=== PATIENT | female | born 1980 | race African-American/Black ===

== ENCOUNTER 2016-12-28 22:27 | Inpatient (IN) ==
[2016-12-28] MEDS ORDERED: methylPREDNISolone SOD SUC 125 MG/2 ML VIAL IV STA (23:39)
[2016-12-28] MEDS ORDERED: ONDANSETRON 4 MG/2 ML VIAL IV STA (23:39)
[2016-12-28] MEDS ORDERED: cefTRIAXone 1,000 MG in SODIUM CHLORIDE 0.9% 100 ML IV STA (23:39)
[2016-12-28] MEDS ORDERED: FUROSEMIDE 100 MG/10 ML VIAL IV STA (23:39)
[2016-12-28] MEDS ORDERED: ALBUTEROL 2.5 MG/3 ML NEB RESP TX SCH (23:45)
--- NOTE | 2016-12-29 00:05 | Emergency Department Note ---
IRadha Emily, am scribing for, and in the presence of, Nick Mejia MD 23: 45. Roberto Shah Charles R, MD, personally performed the services described in this documentation, ascribed by Nurys Garcia in my presence, and it is both accurate and complete . Arrival - Arrival Chief Complaint: Upper Respiratory Stated Complaint: coughing up blood, chest pain, lower abdomen pain ED Nursing Triage Note: Patient complains of coughing up mucus and blood tinged sputum that has been going for the past week. Also complains of sore throat with cough and congestion. Mode of Arrival: Ambulatory Limitations: No Limitations Source: Patient Time Seen by Provider: 12/28/16 23:06 - History of Present Illness HPI Narrative: Pt is a 36 y/o female who came to ED with c/o severe cough, chest congestion, and mild SOB that has been ongoing for a week. Pt describes chest pain as tightness; along with other experienced sxs of wheezing, sore throat, lower abdomen pain, and blood intermittently in phlegm. Pt reports having uncontrolled glucose level, in which was in 6-700's but now in 400's. Pt's PCP is Alfredo Delgado. Pt denies sinus or allergies issues. Onset (ago): week(s) Consistency: constant Severity: mild Severity scale (1-10): 3 Quality: aching, fullness Date of Last Menstrual Period: 09/14/2017 Allergies/Adverse Reactions: Allergies Allergy/AdvReac Type Severity Reaction Status Date / Time gabapentin [From Neurontin] Allergy Severe Swelling Verified 09/15/15 15:34 of Lip/Tongue/Throat iodine Allergy Severe ANAPHYLAXIS Verified 09/15/15 15:34 Home Medications: Home Medications Medication Instructions Recorded Confirmed Type Amitriptyline HCl 100 mg PO BEDTIME 09/15/15 12/28/16 History Cyclobenzaprine [Flexeril] 10 mg PO TID 09/15/15 12/28/16 History Glipizide [Glipizide Xl] 10 mg PO DAILY 09/15/15 12/28/16 History HYDROcodone/ACETAMIN 10-325 [[place] 1 tablet PO Q6H #20 tablet 09/15/15 12/28/16 Rx 10-325] Hum Insulin NPH/Reg Insulin Hm 30 unit SUBCUT DAILY W/SUPPER 09/15/15 12/28/16 History [NovoLIN 70/30] Hum Insulin NPH/Reg Insulin Hm 60 unit SUBCUT DAILY W/BREAKFAST 09/15/15 History [NovoLIN 70/30] Lisinopril [Zestril] 40 mg PO DAILY 09/15/15 12/28/16 History Lovastatin 20 mg PO BEDTIME 09/15/15 12/28/16 History Pregabalin [Lyrica] 100 mg PO BID 09/15/15 12/28/16 History Sulfameth/Trimeth 800-160 Tab 1 tablet PO BID #20 tablet 09/15/15 12/28/16 Rx [Bactrim Ds Tab] metFORMIN [Glucophage] 850 mg PO TID W/MEALS 09/15/15 12/28/16 History Tizanidine HCl 4 mg PO BEDTIME #15 capsule 01/22/16 12/28/16 Rx Naproxen Sodium [Naproxen Sodium 220 mg PO Q8H #30 capsule 02/01/16 12/28/16 Rx Cap] Review of System - Review of System 12 point system: reviewed and no additional remarkable complaints except as stated - Review of System Constitutional: Absent: chills, fever Head/Ears/Nose/Throat: Present: nasal drainage, sore throat Respiratory: Present: cough (severe; hard; productive with some blood in phlegm) , respiratory distress (mild sob), wheezing Cardiovascular: Present: chest pain (chest wall pain) Gastrointestinal: Present: abdominal pain (mild; lower). Absent: nausea, vomiting, diarrhea Musculoskeletal: Absent: arm pain, back pain, leg pain, neck pain Skin: Absent: rash Neurological: Absent: headache Psychiatric: Absent: anxiety Medical,Surgical,& Family Hx - Medical History Cardio: History of: Hypertension Psychological: History of: Depression Neurology: History of: Peripheral Neuropathy Endocrine: History of: Diabetes Mellitus (IDDM), Dyslipidemia - Social History Smoking Status: Never smoker Frequency of Alcohol Use: Occasionally Type of Drug Use: None Exam Vital Signs: Vital Signs Temperature 98.0 F 12/28/16 22:40 Pulse Rate 102 H 12/28/16 22:40 Respiratory Rate 18 12/28/16 23:23 Blood Pressure 151/98 12/28/16 22:40 O2 Sat by Pulse Oximetry 93 L 12/28/16 22:40 - General General appearance: alert, in no apparent distress, obese - Head Head exam: Present: atraumatic, normocephalic - Eye Eye exam: Present: PERRL, EOMI - ENT ENT exam: Present: mucous membranes moist, TM's normal bilaterally. Absent: normal oropharynx (erythematous), mucous membranes dry - Neck Neck exam: Present: full ROM, lymphadenopathy (shotty). Absent: tenderness - Chest Chest inspection: Present: symmetric chest wall rise. Absent: tenderness - Respiratory Respiratory exam: Present: wheezes (bilateral). Absent: respiratory distress - Cardiovascular Cardiovascular exam: Present: regular rate, normal rhythm, normal heart sounds - Abdominal Exam Abdominal exam: Present: soft. Absent: distention, tenderness - Extremities Exam Extremities exam: Present: full ROM, pedal edema (+2). Absent: tenderness - Back Exam Back exam: Present: full ROM. Absent: tenderness - Neurological Exam Neurological exam: Present: alert, oriented X3, CN II-XII intact. Absent: motor sensory deficit - Psychiatric Psychiatric exam: Present: normal affect, normal mood - Skin Skin exam: Present: warm, dry Course Course Narrative: Patient was mistakenly given 70 units of Humulin R IV instead of 7 units IV by the nurse accidentally, the nurse informed me of this and we quickly started doing Accu-Cheks assess the patient on a 10 minute interval. Patient was placed on IV D10 infusion. Patient was informed of what happened she stable understands the dangers of this insulin iatrogenic overdose and agrees to come into the hospital for acute care until her sugars stabilize. At this point her last Accu-Chek was 355. - Reevaluation(s) Reevaluation #1: Patient's blood sugar actually increased to 415 after the D10 will hold back and changed to KVO now she is has not had a precipitous insulin drop yet Time: 02:05 Reevaluation #2: Patient still doing well. Patient's blood sugar actually increased to greater than 500. So D10 will be stopped at this time. Patient still will be admitted for observation and treatment of her other symptoms. Time: 02:52 - Consultations Consultation #1: Hospitalist will admit patient Time: 01:20 Results - Labs CBC & BMP: 12/29/16 00:09 12/28/16 00:09 Lab Results: I have reviewed the patients labs Labs: Laboratory Tests 12/29/16 00:09 Lymph # (Auto) 5.3 H [place] # (Auto) 0.9 H Microbiology 12/29/16 00:09 Throat Group A Streptococcus Rapid Screen - Final Negative for Grp A Strep Ag 12/29/16 00:09 Nasal Aspirate Influenza Types A,B Antigen (ALFONSO) - Final Negative for Influenza A Ag Negative for Influenza B Ag Laboratory Tests 12/28/16 00:09 Anion Gap 17.3 H Glucose 414 H Magnesium 1.6 L Globulin 3.9 H Albumin/Globulin Ratio 1.0 L Laboratory Tests 12/29/16 00:09 B-Natriuretic Peptide < 2 L Laboratory Tests 12/29/16 01:17 POC Glucose 355 H Laboratory Tests 12/29/16 01:47 POC Glucose 415 H Critical Care Time Critical Care Time: Yes Total Critical Care Time: 60 Disposition Clinical Impression: Upper respiratory infection, Bronchitis, Acute dyspnea, Atypical chest pain, Hyperglycemia, Accidental iatrogenic insulin overdose Case discussed with: patient, patient's family Disposition: Still a Patient Condition: Guarded Time of Disposition: 01:35
[2016-12-29] MEDS ORDERED: cefTRIAXone 1,000 MG VIAL ONE (00:13)
[2016-12-29 00:15] LABS: Basophils # 0.1 10*3/uL (0.0-0.2); Basophils % 0.4 % (0.0-0.8); Eosinophils # 0.3 10*3/uL (0.0-0.87); Eosinophils % 2.2 % (0.00-10.9); Hematocrit 41.1 VOL% (35.7-47.0); Hemoglobin 13.4 GM/DL (12.0-16.0); Immature Granulocytes % 0.4 %; Immature Granulocytes Absolute 0.05 #; Lymphocytes # 5.3 10*3/uL (1.4-4.0); Lymphocytes % 43.9 % (21.3-54.2); Mean Corpuscular HGB Conc 32.6 GM/DL (32-36); Mean Corpuscular Hemoglobin 30 PG (27-34); Mean Corpuscular Volume 90.3 FL (87-102); Mean Platelet Volume 11.1 FL (9.6-12.0); Monocytes # 0.9 10*3/uL (0.11-0.8); Monocytes % 7.2 % (1.7-12.7); Neutrophils # 5.5 10*3/uL (1.4-7.4); Neutrophils % 45.9 % (38.7-73.9); Platelet Count 335 T/CUMM (130-400); Red Blood Count 4.55 MC/CUMM (3.8-5.5); Red Cell Distribution Width 12.3 % (9.3-17.3)
[2016-12-29] MEDS ORDERED: FUROSEMIDE 40 MG/4 ML VIAL ONE (00:26)
[2016-12-29] MEDS ORDERED: methylPREDNISolone SOD SUC 125 MG/2 ML VIAL ONE (00:27)
[2016-12-29] MEDS ORDERED: ONDANSETRON 4 MG/2 ML VIAL ONE ×2 (00:27→06:18)
[2016-12-29 00:28] LABS: D-Dimer <= 0.5 MG/L FEU; PT Patient Result 11.1 SECS
[2016-12-29 00:38] LABS: Alanine Aminotransferase 33 U/L (13-56); Albumin 3.9 G/DL (3.4-5.0); Alkaline Phosphatase 63 U/L (45-117); Aspartate Amino Transferase 10 U/L (0-37); Bilirubin,Total < 0.39 MG/DL (0.2-1.0); Blood Urea Nitrogen 16 MG/DL (7-18); Glucose 414 MG/DL (74-106); Magnesium 1.6 MG/DL (1.8-2.4); Potassium 4.3 MMOL/L (3.5-5.1); Sodium 136 MMOL/L (136-145); Total Protein 7.8 G/DL (6.4-8.3); Troponin I Only < 0.015 NG/ML (0.00-0.045)
[2016-12-29] MEDS ORDERED: MAGNESIUM SULF RIDER 2 GM in PREMIX 1 EACH IV STA (00:45)
[2016-12-29] MEDS ORDERED: INSULIN REGULAR 100 UNIT/ML IV STA (00:45)
[2016-12-29] MEDS ORDERED: MAGNESIUM SULF RIDER 50 ML IV ONE (00:52)
[2016-12-29] MEDS ORDERED: INSULIN REGULAR 100 UNIT/ML ONE (00:54)
[2016-12-29] MEDS ORDERED: DEXTROSE 10% 250 ML IV ONE (01:19)
[2016-12-29] MEDS ORDERED: DEXTROSE 10% 1,000 ML IV SCH (01:30)
[2016-12-29 03:20] LABS: Troponin I Only < 0.015 NG/ML (0.00-0.045)
--- NOTE | 2016-12-29 04:22 | Hospitalist History & Physical ---
Assessment and Plan (1) Upper respiratory infection Status: Acute Current Visit: Yes (2) Bronchitis Status: Acute Current Visit: Yes (3) Acute dyspnea Status: Acute Current Visit: Yes (4) Atypical chest pain Status: Acute Current Visit: Yes (5) Hyperglycemia Status: Acute Assessment and plan: Our plan for this patient. Per the ER chart patient was accidentally given 70 units of Humulin R subcu instead of 7 units IV by the nurse. We are going to watch the patient closely with Accu-Cheks q. one hours while in the emergency room. After 8:00 patient should be in the clear as far as concerns for hypoglycemia and will be able to transfer her upstairs. I am going to treat her for a bronchitis with hemoptysis. I am going to consult pulmonary for their evaluation. Her mother has very severe asthma patient has a slight wheeze on reluctant to give any steroids at this point given her sugar have been so uncontrolled. Patient is also going to need some diabetic education. Current Visit: Yes History of Present Illness Chief complaint: Hemoptysis History of present illness: Ms. Salgado is a 36 year old female with past medical history significant for diabetes hypertension increased cholesterol neuropathy insomnia and depression who was in her normal state of health until this past week. Patient said that she is continually coughing up blood. She said her cough is severe. She has had some chest congestion and some shortness of breath for 1 week. She describes this is creating a tightness sensation in her chest. She is morbidly obese. She denies any fever. And she just feels like she cannot take a good breath. She has very hard to control glucose that she says usually ranges in the 400s. She sees Dr. Alfredo Delgado. She could not get in to see him in clinic therefore she came up to the emergency room for further evaluation I was consulted to admit her Home Medications Medication Instructions Recorded Confirmed Type Amitriptyline HCl 100 mg PO BEDTIME 09/15/15 12/28/16 History Cyclobenzaprine [Flexeril] 10 mg PO TID 09/15/15 12/28/16 History Glipizide [Glipizide Xl] 10 mg PO DAILY 09/15/15 12/28/16 History HYDROcodone/ACETAMIN 10-325 [[place] 1 tablet PO Q6H #20 tablet 09/15/15 12/28/16 Rx 10-325] Hum Insulin NPH/Reg Insulin Hm 30 unit SUBCUT DAILY W/SUPPER 09/15/15 12/28/16 History [NovoLIN 70/30] Hum Insulin NPH/Reg Insulin Hm 60 unit SUBCUT DAILY W/BREAKFAST 09/15/15 History [NovoLIN 70/30] Lisinopril [Zestril] 40 mg PO DAILY 09/15/15 12/28/16 History Lovastatin 20 mg PO BEDTIME 09/15/15 12/28/16 History Pregabalin [Lyrica] 100 mg PO BID 09/15/15 12/28/16 History Sulfameth/Trimeth 800-160 Tab 1 tablet PO BID #20 tablet 09/15/15 12/28/16 Rx [Bactrim Ds Tab] metFORMIN [Glucophage] 850 mg PO TID W/MEALS 09/15/15 12/28/16 History Tizanidine HCl 4 mg PO BEDTIME #15 capsule 01/22/16 12/28/16 Rx Naproxen Sodium [Naproxen Sodium 220 mg PO Q8H #30 capsule 02/01/16 12/28/16 Rx Cap] Allergies Allergy/AdvReac Type Severity Reaction Status Date / Time gabapentin [From Neurontin] Allergy Severe Swelling Verified 09/15/15 15:34 of Lip/Tongue/Throat iodine Allergy Severe ANAPHYLAXIS Verified 09/15/15 15:34 Medical,Surgical,& Family Hx - Medical History Cardio: History of: Hypertension Psychological: History of: Depression Neurology: History of: Peripheral Neuropathy Endocrine: History of: Diabetes Mellitus (IDDM), Dyslipidemia - Surgical History Additional Surgical History: none - Family History Family History: Reports;: Family Cancer Additional Family History: Her mother has severe asthma and well-known to our service - Social History Smoking Status: Never smoker Frequency of Alcohol Use: Occasionally Type of Drug Use: None 12 point system: reviewed and no additional remarkable complaints except as stated Exam - Constitutional Vitals: Period Temp Pulse Resp BP Sys/Camp Pulse Ox Last 24 Hr 98.0 F 102 18-20 151/98 93 - General General appearance: alert, in no apparent distress, obese - Head Head exam: Present: atraumatic, normocephalic - Eye Eye exam: Present: PERRL, EOMI - ENT ENT exam: Present: mucous membranes moist, TM's normal bilaterally. - Neck Neck exam: Present: full ROM, l. - Chest Chest inspection: Present: symmetric chest wall rise. Absent: tenderness - Respiratory Respiratory exam: Present: wheezes (bilateral). - Cardiovascular Cardiovascular exam: Present: regular rate, normal rhythm, normal heart sounds - Abdominal Exam Abdominal exam: Present: soft. Absent: distention, tenderness - Extremities Exam Extremities exam: Present: full ROM, pedal edema (+2). Absent: tenderness - Back Exam Back exam: Present: full ROM. Absent: tenderness - Neurological Exam Neurological exam: Present: alert, oriented X3, CN II-XII intact. Absent: motor sensory deficit - Psychiatric Psychiatric exam: Present: normal affect, normal mood - Skin Skin exam: Present: warm, dry Results - Labs CBC & BMP: 12/29/16 00:09 12/28/16 00:09
[2016-12-29] MEDS ORDERED: GLUCAGON 1 MG VIAL IM PRN ×2 (04:35→04:46)
[2016-12-29] MEDS ORDERED: DEXTROSE 50% 25 GM/50 ML VIAL IV PRN ×2 (04:35→04:46)
[2016-12-29] MEDS ORDERED: ONDANSETRON 4 MG/2 ML VIAL IV PRN (04:35)
[2016-12-29] MEDS ORDERED: ACETAMINOPHEN 325 MG TABLET PO PRN (04:35)
[2016-12-29] MEDS ORDERED: ZALEPLON 5 MG CAPSULE PO PRN (04:35)
[2016-12-29] MEDS ORDERED: NAPROXEN 250 MG TABLET PO SCH (04:45)
[2016-12-29] MEDS ORDERED: INSULIN NPH/REGULAR 70/30 100 UNIT/ML SUBCUT SCH ×2 (08:00→17:00)
--- NOTE | 2016-12-29 08:09 | XRay Report ---
Exam: XR chest 1V portable Indication: Shortness of breath Comparison study: None Findings: The heart, mediastinum, and bony structures are within normal limits. Patchy opacities within the bases may represent atelectasis. Upper lungs appear predominantly clear. Upper lobe pulmonary vasculature does not appear engorged. There is no pneumothorax or pleural effusion identified. Impression: Minimal patchy opacities within the lung bases may represent atelectasis. PROCEDURE INTERPRETED AT [facility] DEPARTMENT OF RADIOLOGY Final Report Signed by: Richard Berumen
--- NOTE | 2016-12-29 08:47 | EKG Report ---
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
[2016-12-29] MEDS: ALBUTEROL 2.5 MG/3 ML NEB RESP TX SCH ×3 (09:08→19:27)
[2016-12-29] MEDS: INSULIN REGULAR 100 UNIT/ML SUBCUT SCH ×4 (13:27→21:25)
[2016-12-29] MEDS: PREGABALIN 100 MG CAPSULE PO SCH (13:28)
[2016-12-29] MEDS: CYCLOBENZAPRINE 10 MG TABLET PO SCH ×4 (13:29→21:24)
[2016-12-29] MEDS: metFORMIN 850 MG TABLET PO SCH ×2 (13:29→13:36)
[2016-12-29] MEDS: LISINOPRIL 20 MG TABLET PO SCH (13:29)
[2016-12-29] MEDS: PANTOPRAZOLE 40 MG TABLET PO SCH (13:32)
[2016-12-29] MEDS: NAPROXEN 250 MG TABLET PO SCH ×2 (13:39→21:23)
--- NOTE | 2016-12-29 15:27 | Hospitalist Progress Note ---
Assessment and Plan - Time spent with patient Time spent with patient: Greater than 30 minutes (1) Hemoptysis Status: Acute Assessment and plan: Will obtain a Ct of the chest. Current Visit: Yes (2) Atypical chest pain Status: Acute Assessment and plan: Normal enzyme levels. Current Visit: Yes (3) Diabetes mellitus Status: Acute Assessment and plan: Uncontrolled. Holding metformin. Current Visit: Yes Qualifiers: Diabetes mellitus type: type 2 (4) Upper respiratory infection Status: Acute Assessment and plan: Continue management. Current Visit: Yes Hospitalist: Subjective Interval history: Admitted with hemoptysis, c/o pleuritic chest pain. Exam - Constitutional Vitals: Period Temp Pulse Resp BP Sys/Camp Pulse Ox Last 24 Hr 97.2 F 95-103 16-22 131-133/81-96 93 General appearance: no acute distress - Head Head exam: Present: normocephalic, atraumatic - Eye Eye exam: Present: EOMI Pupils: Present: MURIEL - ENT ENT exam: Present: normal exam - Neck Neck exam: Present: normal inspection - Respiratory Respiratory exam: Present: clear to auscultation bilaterally. Absent: rhonchi, wheezes - Cardiovascular Cardiovascular exam: Present: regular rate and rhythm. Absent: gallop, rubs, systolic murmur - GI/Abdominal GI/Abdominal exam: Present: normal bowel sounds, soft. Absent: distended, firm , guarding, tenderness, rebound - Extremities Exam Extremities exam: Present: normal inspection. Absent: calf tenderness, edema Results - Labs CBC & BMP: 12/29/16 00:09 12/28/16 00:09 Lab Results: I have reviewed the past 24 hour labs
--- NOTE | 2016-12-29 16:45 | Ultrasound Report ---
Exam: Bilateral lower extremity venous Doppler ultrasound Comparison: None Clinical history: Hemoptysis, shortness of breath Technique: Duplex scan of the lower extremity veins using B-mode/grayscale scaled imaging and Doppler spectral analysis and color flow. Findings: Major venous structures of the lower extremities demonstrate a normal course and caliber. Normal color-flow study and spectral analysis. There is normal compression and augmentation of bilateral common femoral, superficial femoral and popliteal veins. The proximal bilateral greater saphenous veins appear to be patent. Impression: No evidence to suggest deep venous thrombosis within either lower extremity. Ultrasound images were captured and stored. PROCEDURE INTERPRETED AT [facility] DEPARTMENT OF RADIOLOGY Final Report Signed by: Dr. Ivon Joshua
[2016-12-29] MEDS ORDERED: tiZANidine 4 MG TABLET PO SCH (21:00)
[2016-12-29] MEDS: cefTRIAXone 1,000 MG in SODIUM CHLORIDE 0.9% 100 ML IV SCH (21:23)
[2016-12-29] MEDS: LOVASTATIN 20 MG TABLET PO SCH (21:24)
[2016-12-29] MEDS: AMITRIPTYLINE 50 MG TABLET PO SCH (21:29)
[2016-12-30] MEDS: ALBUTEROL 2.5 MG/3 ML NEB RESP TX SCH ×5 (00:19→23:55)
[2016-12-30 03:46] LABS: Basophils # 0.1 10*3/uL (0.0-0.2); Basophils % 0.5 % (0.0-0.8); Eosinophils # 0.2 10*3/uL (0.0-0.87); Eosinophils % 1.9 % (0.00-10.9); Hematocrit 36.6 VOL% (35.7-47.0); Hemoglobin 12.1 GM/DL (12.0-16.0); Immature Granulocytes % 0.5 %; Immature Granulocytes Absolute 0.05 #; Lymphocytes % 37.8 % (21.3-54.2); Mean Corpuscular HGB Conc 33.1 GM/DL (32-36); Mean Corpuscular Hemoglobin 29 PG (27-34); Mean Corpuscular Volume 89.1 FL (87-102); Mean Platelet Volume 11.7 FL (9.6-12.0); Monocytes % 9.8 % (1.7-12.7); Neutrophils # 5.2 10*3/uL (1.4-7.4); Neutrophils % 49.5 % (38.7-73.9); Platelet Count 317 T/CUMM (130-400); Red Blood Count 4.11 MC/CUMM (3.8-5.5); Red Cell Distribution Width 12.8 % (9.3-17.3); White Blood Count 10.5 T/CUMM (4-12)
[2016-12-30 04:01] LABS: Calcium 9.4 MG/DL (8.5-10.1); Osmolality,Calculated 289.8 MOS/KG (273-304)
[2016-12-30] MEDS: PREGABALIN 100 MG CAPSULE PO SCH ×3 (04:05→21:00)
[2016-12-30] MEDS: NAPROXEN 250 MG TABLET PO SCH ×3 (04:06→21:00)
--- NOTE | 2016-12-30 09:30 | Hospitalist Progress Note ---
Assessment and Plan - Time spent with patient Time spent with patient: Greater than 30 minutes (1) Hemoptysis Status: Acute Assessment and plan: Will obtain a VQ scan of the chest if possible. LE US negative. Current Visit: Yes (2) Atypical chest pain Status: Acute Assessment and plan: Normal enzyme levels. Current Visit: Yes (3) Diabetes mellitus Status: Acute Assessment and plan: Poorly controlled. Holding metformin. Continued accurate home insulin dose. Current Visit: Yes Qualifiers: Diabetes mellitus type: type 2 (4) Upper respiratory infection Status: Acute Assessment and plan: Continue management. Current Visit: Yes Hospitalist: Subjective Interval history: No complaints, no overnight events. Denies chest pain or hemoptysis. Exam - Constitutional Vitals: Period Temp Pulse Resp BP Sys/Camp Pulse Ox Last 24 Hr 97 F-98.2 F 79-118 18-22 107-151/69-84 93-99 General appearance: no acute distress, morbidly obese - Head Head exam: Present: normocephalic, atraumatic - Eye Eye exam: Present: EOMI Pupils: Present: MURIEL - ENT ENT exam: Present: normal exam - Neck Neck exam: Present: normal inspection - Respiratory Respiratory exam: Present: clear to auscultation bilaterally. Absent: rhonchi, wheezes - Cardiovascular Cardiovascular exam: Present: regular rate and rhythm. Absent: gallop, rubs, systolic murmur - GI/Abdominal GI/Abdominal exam: Present: normal bowel sounds, soft. Absent: distended, firm , guarding, tenderness, rebound - Extremities Exam Extremities exam: Present: normal inspection. Absent: calf tenderness, edema Results - Labs CBC & BMP: 12/30/16 02:54 12/30/16 02:54 Lab Results: I have reviewed the past 24 hour labs
--- NOTE | 2016-12-30 09:57 | Pulmonology Consult Note ---
Assessment and Plan (1) Bronchitis Status: Acute Assessment and plan: The patient has had some green sputum and probably does have some bronchitis. Current Visit: Yes (2) Hemoptysis Status: Acute Assessment and plan: The hemoptysis does not appear to be very severe and I doubt she has any endobronchial lesions. Her chest x-ray suggests some mild overload Current Visit: Yes (3) Diabetes mellitus Status: Acute Assessment and plan: The patient is overweight with diabetes. Current Visit: Yes Qualifiers: Diabetes mellitus type: type 2 (4) Hypertension Status: Acute Assessment and plan: She does have hypertension and may have a mild cardiomyopathy. Current Visit: Yes History of Present Illness Chief complaint: Hemoptysis History of present illness: Ms. Salgado is a 36 year old black female has a history of hypertension and diabetes and is overweight. She is a non-smoker. She said the past week or so she has been coughing up some sputum with occasional blood. She felt like she had some chest congestion and bronchitis. She has not had any fever or nosebleeds. She has not had any chest pain. She did have some abdominal pain in the past. She feels like she is breathing a little better now. Home Medications Medication Instructions Recorded Confirmed Type Cyclobenzaprine [Flexeril] 10 mg PO TID 09/15/15 12/28/16 History Hum Insulin NPH/Reg Insulin Hm 60 unit SUBCUT DAILY W/SUPPER 09/15/15 12/29/16 History [NovoLIN 70/30] Hum Insulin NPH/Reg Insulin Hm 80 unit SUBCUT DAILY W/BREAKFAST 09/15/15 History [NovoLIN 70/30] Pregabalin [Lyrica] 100 mg PO BID 09/15/15 12/28/16 History metFORMIN [Glucophage] 850 mg PO TID W/MEALS 09/15/15 12/28/16 History Tizanidine HCl 4 mg PO BEDTIME #15 capsule 01/22/16 12/28/16 Rx Lisinopril/Hydrochlorothiazide 2 each PO DAILY 12/29/16 12/29/16 History [Lisinopril-Hctz 20-12.5 mg Tab] Lovastatin 40 mg PO BEDTIME 12/29/16 12/29/16 History Allergies Allergy/AdvReac Type Severity Reaction Status Date / Time gabapentin [From Neurontin] Allergy Severe Swelling Verified 09/15/15 15:34 of Lip/Tongue/Throat iodine Allergy Severe ANAPHYLAXIS Verified 09/15/15 15:34 - Constitutional Constitutional: Present: weight gain. Absent: chills, fever(s) - EENT Eyes: Absent: loss of vision Ears: Absent: decreased hearing Nose, mouth and throat: Absent: dysphagia, headache(s), sinus pressure - Cardiovascular Cardiovascular: Present: dyspnea, orthopnea. Absent: chest pain at rest, edema - Respiratory Respiratory: Present: cough, dyspnea, hemoptysis, change in phlegm color. Absent: pain on inspiration - Gastrointestinal Gastrointestinal: Absent: abdominal pain, dysphagia, nausea, vomiting - Genitourinary Genitourinary: Absent: dysuria, hematuria, urinary frequency - Musculoskeletal Musculoskeletal: Absent: arthralgias - Neurological Neurological: Absent: abnormal speech, focal weakness, paresthesias Exam (Pulmonay) H&P - Constitutional Vitals: Period Temp Pulse Resp BP Sys/Camp Pulse Ox Last 24 Hr 97 F-98.2 F 79-118 18-22 107-151/69-84 93-99 General appearance: no acute distress, over weight - Head Head exam: Present: normal inspection, normocephalic - Eye Eye exam: Present: EOMI. Absent: scleral icterus Pupils: Present: MURIEL - ENT ENT exam: Present: normal exam - Neck Neck exam: Present: normal inspection. Absent: lymphadenopathy, thyromegaly - Respiratory Respiratory exam: Present: rales, rhonchi, other (The patient has good breath sounds with some minimal rhonchi and crackles) - Cardiovascular Cardiovascular exam: Present: regular rate and rhythm, tachycardia. Absent: gallop, systolic murmur - GI/Abdominal GI/Abdominal exam: Present: normal bowel sounds, soft. Absent: organomegaly, tenderness - Extremities Exam Extremities exam: Absent: calf tenderness, edema - Neurological Exam Neurological exam: Present: alert, oriented X3, CN II-XII intact - Psychiatric Psychiatric exam: Present: normal affect - Skin Skin exam: Present: warm, dry Medical,Surgical,& Family Hx - Medical History Cardio: History of: Hypertension Psychological: History of: Depression Neurology: History of: Peripheral Neuropathy Endocrine: History of: Diabetes Mellitus (IDDM), Dyslipidemia - Family History Family History: Reports;: Family Cancer - Social History Smoking Status: Never smoker Frequency of Alcohol Use: Occasionally Type of Drug Use: None Results - Labs CBC & BMP: 12/30/16 02:54 12/30/16 02:54 - Diagnostic Findings Procedure: Chest x-ray: image reviewed by me, report reviewed by me (Chest x- ray shows mild cardiomegaly and bilateral haziness and suggest some mild overload)
[2016-12-30] MEDS ORDERED: FUROSEMIDE 40 MG/4 ML VIAL IV ONE (10:02)
[2016-12-30] MEDS: INSULIN REGULAR 100 UNIT/ML SUBCUT SCH ×4 (12:39→22:31)
[2016-12-30] MEDS: PANTOPRAZOLE 40 MG TABLET PO SCH (12:41)
[2016-12-30] MEDS: LISINOPRIL 20 MG TABLET PO SCH (12:41)
[2016-12-30] MEDS: CYCLOBENZAPRINE 10 MG TABLET PO SCH ×3 (12:46→21:00)
--- NOTE | 2016-12-30 13:52 | ECHO Report ---
Jil Salgado Exam Date: 12/30/2016 11:09 Referring Physician: Technologist: Slime JENKINS Age: 36 Ht (in): Wt (lb): Gender: F Exam Location: [facility] ([place]) Echo Indications: HTN, hyperglycemia, hemoptysis, DM, URI, Broncitis, acute dyspnea, chest pain, Obesity BP: / HR: Rhythm: Sinus Technical Quality: Very technically difficult study IMPRESSIONS Technically difficult study Normal chamber sizes Probably 2-3+ concentric LVH Hyperdynamic LV systolic function with ejection fraction estimated greater than 70% without wall motion abnormality Trace to 1+ tricuspid regurgitation with RVSP 12 mmHg plus RAP MEASUREMENTS (Male / Female) Normal Values 2D ECHO LV Diastolic Diameter PLAX 3.4 cm 4.2 - 5.9 / 3.9 - 5.3 cm LV Systolic Diameter PLAX 2.2 cm LV Fractional Shortening PLAX 34.9 % IVS Diastolic Thickness 1.4 cm 0.6 - 1.0 / 0.6 - 0.9 cm LVPW Diastolic Thickness 1.2 cm 0.6 - 1.0 / 0.6 - 0.9 cm RV Internal Dim ED PLAX 2.6 cm Aortic Root Diameter 2.5 cm LA Systolic Diameter LX 3.0 cm 3.0 - 4.0 / 2.7 - 3.8 cm DOPPLER TR Peak Velocity 172.0 cm/s TR Peak Gradient 11.8 mmHg FINDINGS Left Ventricle Normal left ventricular cavity Right Ventricle Normal right ventricular size. Right Atrium Normal right atrial size. Left Atrium Normal left atrial size. Mitral Valve Mild mitral valve sclerosis. Aortic Valve Mild aortic valve sclerosis. Tricuspid Valve Morphologically normal tricuspid valve. Trace tricuspid valve regurgitation. Pulmonic Valve Morphologically normal pulmonic valve. Pericardium No pericardial effusion. Aorta Normal size aortic root and proximal ascending aorta. Srinivas Martines (Electronically Signed) Final Date: 30 December 2016 13:51
[2016-12-30] MEDS: INSULIN NPH/REGULAR 70/30 100 UNIT/ML SUBCUT SCH (17:27)
[2016-12-30] MEDS ORDERED: BISACODYL 5 MG TABLET PO PRN (20:52)
[2016-12-30] MEDS: LOVASTATIN 20 MG TABLET PO SCH (21:00)
[2016-12-30] MEDS: AMITRIPTYLINE 50 MG TABLET PO SCH (21:00)
[2016-12-30] MEDS: cefTRIAXone 1,000 MG in SODIUM CHLORIDE 0.9% 100 ML IV SCH (21:01)
[2016-12-31] MEDS: NAPROXEN 250 MG TABLET PO SCH ×3 (06:56→21:10)
[2016-12-31] MEDS: ALBUTEROL 2.5 MG/3 ML NEB RESP TX SCH ×3 (07:12→19:04)
--- NOTE | 2016-12-31 08:34 | XRay Report ---
History: Hemoptysis. Tachycardia Date: 12/31/2016 Study: Chest x-ray single view post lung scan Comparison exam: December 28, 2016 chest x-ray The cardiomediastinal silhouette and pulmonary vasculature are unremarkable. The lungs and pleural spaces are clear. The osseous structures are unremarkable. Impression: No acute cardiopulmonary process. No adverse interval change PROCEDURE INTERPRETED AT [facility] DEPARTMENT OF RADIOLOGY Final Report Signed by: Dr. Viviane Britt
[2016-12-31] MEDS: INSULIN NPH/REGULAR 70/30 100 UNIT/ML SUBCUT SCH ×2 (09:30→17:22)
[2016-12-31] MEDS: CYCLOBENZAPRINE 10 MG TABLET PO SCH ×3 (09:30→21:10)
[2016-12-31] MEDS: PANTOPRAZOLE 40 MG TABLET PO SCH (09:30)
[2016-12-31] MEDS: LISINOPRIL 20 MG TABLET PO SCH (09:30)
[2016-12-31] MEDS: INSULIN REGULAR 100 UNIT/ML SUBCUT SCH ×4 (09:30→22:38)
[2016-12-31] MEDS: PREGABALIN 100 MG CAPSULE PO SCH ×2 (09:30→21:11)
--- NOTE | 2016-12-31 09:51 | Pulmonology Progress Note ---
Pulmonary - PN: Subj Interval history: The patient is a 36-year-old that is overweight with diabetes and hypertension. She says she has been coughing up some green sputum and some blood-tinged sputum. She came in with shortness of breath and her chest x-ray is suggestive of possible mild volume overload versus mild pneumonitis. She is actually better today. She is still coughing some but says there is no more blood. She is not having any chest pain or increased shortness of breath now. Her echocardiogram shows LVH. Her venous Dopplers are negative and her VQ scan shows no mismatches. Her chest x-ray today looks much better. Her lung horne look clear now. Much of this may just be some bronchitis. Exam (Progress Note) - Constitutional Vitals: Period Temp Pulse Resp BP Sys/Camp Pulse Ox Last 24 Hr 97.4 F-98.3 F 83-104 16-97 133-147/67-92 92-100 Exam: General appearance: no acute distress, over weight, she is walking around and looks comfortable and is not short of breath. - Head Head exam: Present: normal inspection, normocephalic - Eye Eye exam: Present: EOMI. Absent: scleral icterus Pupils: Present: MURIEL - ENT ENT exam: Present: normal exam - Neck Neck exam: Present: normal inspection. Absent: lymphadenopathy, thyromegaly - Respiratory Respiratory exam: Present: Her lungs have good breath sounds now with no wheezing or rales now. - Cardiovascular Cardiovascular exam: Present: regular rate and rhythm, tachycardia. Absent: gallop, systolic murmur - GI/Abdominal GI/Abdominal exam: Present: normal bowel sounds, soft. Absent: organomegaly, tenderness - Extremities Exam Extremities exam: Absent: calf tenderness, edema - Neurological Exam Neurological exam: Present: alert, oriented X3, CN II-XII intact, no focal deficit - Psychiatric Psychiatric exam: Present: normal affect - Skin Skin exam: Present: warm, dry Results - Labs CBC & BMP: 12/30/16 02:54 12/30/16 02:54 - Diagnostic Findings Procedure: Chest x-ray: image reviewed by me, report reviewed by me (Chest x- ray is clear now.) Assessment and Plan (1) Bronchitis Status: Acute Assessment and plan: The patient has had some green sputum and probably does have some bronchitis. She is doing well with breathing treatments and antibiotics and can probably go home soon. Current Visit: Yes (2) Hemoptysis Status: Acute Assessment and plan: The hemoptysis has cleared and I do not see any signs of infiltrates now. She mainly has bronchitis. Current Visit: Yes (3) Diabetes mellitus Status: Acute Assessment and plan: The patient is overweight with diabetes. Her glucose was 285 this morning. Current Visit: Yes Qualifiers: Diabetes mellitus type: type 2 (4) Hypertension Status: Acute Assessment and plan: She does have hypertension and has LVH on echo. Current Visit: Yes
--- NOTE | 2016-12-31 10:12 | Nuclear Medicine Report ---
History: Hemoptysis and tachycardia Date: 12/31/2016 Study: Ventilation perfusion lung scan Comparison exam: Chest x-ray 12/31/2016 Following the inhalation of 40 mCi of aerosolized technetium 99m DTPA, images were acquired over the lungs in 6 projections for the purpose of a ventilation exam. Then, following the administration of 5 mCi technetium 99m MAA, images were acquired over the lungs in the same projections for purposes of a perfusion exam. There is no moderate or large unmatched segmental perfusion defect in either lung. There are multiple small subsegmental matched areas of decreased ventilation and perfusion in the posterior basilar aspects of either lower lobe. The ventilation abnormalities are more numerous and are slightly larger than the perfusion abnormalities. There is no corresponding radiographic infiltrate. Impression: The study is abnormal, but is felt to be low probability for pulmonary embolic disease PROCEDURE INTERPRETED AT [facility] DEPARTMENT OF RADIOLOGY Final Report Signed by: Dr. Viviane Britt
--- NOTE | 2016-12-31 10:29 | Hospitalist Progress Note ---
Assessment and Plan - Time spent with patient Time spent with patient: Greater than 30 minutes (1) Hemoptysis Status: Acute Assessment and plan: Will obtain a VQ scan of the chest if possible. LE US negative. Current Visit: Yes (2) Atypical chest pain Status: Acute Assessment and plan: Normal enzyme levels. Current Visit: Yes (3) Diabetes mellitus Status: Acute Assessment and plan: Poorly controlled. Holding metformin. Continued accurate home insulin dose. Current Visit: Yes Qualifiers: Diabetes mellitus type: type 2 (4) Upper respiratory infection Status: Acute Assessment and plan: Continue management. Current Visit: Yes Hospitalist: Subjective Interval history: No complaints at this time. She reports resolved hemoptysis. Exam - Constitutional Vitals: Period Temp Pulse Resp BP Sys/Camp Pulse Ox Last 24 Hr 97.4 F-98.3 F 83-104 16-97 133-147/67-92 92-100 General appearance: no acute distress, morbidly obese - Head Head exam: Present: normocephalic, atraumatic - Eye Eye exam: Present: EOMI Pupils: Present: MURIEL - ENT ENT exam: Present: normal exam - Neck Neck exam: Present: normal inspection - Respiratory Respiratory exam: Present: clear to auscultation bilaterally. Absent: rhonchi, wheezes - Cardiovascular Cardiovascular exam: Present: regular rate and rhythm. Absent: gallop, rubs, systolic murmur - GI/Abdominal GI/Abdominal exam: Present: normal bowel sounds, soft. Absent: distended, firm , guarding, tenderness, rebound - Extremities Exam Extremities exam: Present: normal inspection. Absent: calf tenderness, edema Results - Labs CBC & BMP: 12/30/16 02:54 12/30/16 02:54 Lab Results: I have reviewed the past 24 hour labs
[2016-12-31] MEDS: AMITRIPTYLINE 50 MG TABLET PO SCH (21:10)
[2016-12-31] MEDS: LOVASTATIN 20 MG TABLET PO SCH (21:10)
[2016-12-31] MEDS: cefTRIAXone 1,000 MG in SODIUM CHLORIDE 0.9% 100 ML IV SCH (21:11)
[2017-01-01] MEDS: ALBUTEROL 2.5 MG/3 ML NEB RESP TX SCH ×3 (00:38→13:10)
[2017-01-01 05:23] LABS: Basophils % 0.4 % (0.0-0.8); Eosinophils # 0.3 10*3/uL (0.0-0.87); Eosinophils % 2.6 % (0.00-10.9); Hematocrit 36.8 VOL% (35.7-47.0); Hemoglobin 11.7 GM/DL (12.0-16.0); Immature Granulocytes % 0.6 %; Immature Granulocytes Absolute 0.06 #; Lymphocytes % 41.1 % (21.3-54.2); Mean Corpuscular HGB Conc 31.8 GM/DL (32-36); Mean Corpuscular Hemoglobin 29 PG (27-34); Mean Corpuscular Volume 92.5 FL (87-102); Mean Platelet Volume 11.9 FL (9.6-12.0); Monocytes # 0.8 10*3/uL (0.11-0.8); Monocytes % 7.9 % (1.7-12.7); NRBC # 0.02 10*3/uL; Neutrophils # 4.6 10*3/uL (1.4-7.4); Neutrophils % 47.4 % (38.7-73.9); Platelet Count 265 T/CUMM (130-400); Red Blood Count 3.98 MC/CUMM (3.8-5.5); White Blood Count 9.7 T/CUMM (4-12)
[2017-01-01 05:52] LABS: Calcium 8.5 MG/DL (8.5-10.1); Potassium 4.6 MMOL/L (3.5-5.1)
[2017-01-01] MEDS: NAPROXEN 250 MG TABLET PO SCH ×2 (08:53→12:00)
--- NOTE | 2017-01-01 09:54 | Pulmonology Progress Note ---
Pulmonary - PN: Subj Interval history: The patient is a 36-year-old that is overweight with diabetes and hypertension. She says she has been coughing up some green sputum and some blood-tinged sputum. She came in with shortness of breath and her chest x-ray is suggestive of possible mild volume overload versus mild pneumonitis. She is actually better today. She is still coughing some but says there is no more blood. She is not having any chest pain or increased shortness of breath now. Her echocardiogram shows LVH. Her venous Dopplers are negative and her VQ scan shows no mismatches. Her chest x-ray today looks much better. She says she had a fairly good night and is resting better. She is not having any shortness of breath now and her cough is much improved. Her hemoptysis has resolved completely. Her lungs sound clear now. Her bronchitis is much better. Exam (Progress Note) - Constitutional Vitals: Period Temp Pulse Resp BP Sys/Camp Pulse Ox Last 24 Hr 97 F-98.0 F 90-105 16-22 110-141/61-81 95-98 Exam: General appearance: no acute distress, over weight, she is walking around and looks comfortable and her cough is better. - Head Head exam: Present: normal inspection, normocephalic - Eye Eye exam: Present: EOMI. Absent: scleral icterus Pupils: Present: MURIEL - ENT ENT exam: Present: normal exam - Neck Neck exam: Present: normal inspection. Absent: lymphadenopathy, thyromegaly - Respiratory Respiratory exam: Present: Her lungs have good breath sounds now with no wheezing or rales now. - Cardiovascular Cardiovascular exam: Present: regular rate and rhythm, tachycardia. Absent: gallop, systolic murmur - GI/Abdominal GI/Abdominal exam: Present: normal bowel sounds, soft. Absent: organomegaly, tenderness - Extremities Exam Extremities exam: Absent: calf tenderness, edema - Neurological Exam Neurological exam: Present: alert, oriented X3, CN II-XII intact, no focal deficit - Psychiatric Psychiatric exam: Present: normal affect - Skin Skin exam: Present: warm, dry Results - Labs CBC & BMP: 01/01/17 04:41 01/01/17 04:41 Assessment and Plan (1) Bronchitis Status: Acute Assessment and plan: The patient has had some green sputum and probably does have some bronchitis. Her cultures have been negative so far. Her cough is much better and she can probably go home today on antibiotics. Current Visit: Yes (2) Hemoptysis Status: Acute Assessment and plan: The hemoptysis has cleared and I do not see any signs of infiltrates now. She mainly has bronchitis. She does not need any further workup at this point. She can take antibiotics at home. Current Visit: Yes (3) Diabetes mellitus Status: Acute Assessment and plan: The patient is overweight with diabetes. Her glucose was 264 this morning. Current Visit: Yes Qualifiers: Diabetes mellitus type: type 2 (4) Hypertension Status: Acute Assessment and plan: She does have hypertension and has LVH on echo. She will need to continue with blood pressure medicines. Current Visit: Yes
[2017-01-01] MEDS: INSULIN NPH/REGULAR 70/30 100 UNIT/ML SUBCUT SCH (10:36)
[2017-01-01] MEDS: CYCLOBENZAPRINE 10 MG TABLET PO SCH ×2 (10:39→14:25)
[2017-01-01] MEDS: PREGABALIN 100 MG CAPSULE PO SCH (10:39)
[2017-01-01] MEDS: LISINOPRIL 20 MG TABLET PO SCH (10:40)
[2017-01-01] MEDS: PANTOPRAZOLE 40 MG TABLET PO SCH (10:40)
[2017-01-01] MEDS: INSULIN REGULAR 100 UNIT/ML SUBCUT SCH ×2 (10:49→14:16)
--- NOTE | 2017-01-01 11:00 | Discharge Summary ---
Hospital Course - Hospital Course Hospital Course: Ms. Salgado was admitted for evaluation of hemoptysis and found to have bronchitis. She was initiated on Rocephin and breathing treatments. Patient was evaluated for pulmonary embolism with lower extremity ultrasound and VQ scan which was unremarkable. Unable to obtain a CT due to possible anaphylaxis to iodine. Despite this the patient improved dramatically on treatment she was also seen in consultation by pulmonary who assisted. By discharge she had met maximum benefit of hospitalization. - Time spent with patient Time with patient DS: Greater than 30 minutes Diagnosis - Discharge Diagnosis (1) Hemoptysis Status: Acute (2) Atypical chest pain Status: Acute (3) Diabetes mellitus Status: Acute (4) Upper respiratory infection Status: Acute Discharge Plan - Discharge Data Disposition: Disch To Home/Self Care Condition at Discharge: Stable Discharge Diet: advance to your usual diet - Discharge Medications New Levofloxacin Tab [Levaquin Tab] 500 mg PO DAILY #4 tablet Continue Cyclobenzaprine [Flexeril] 10 mg PO TID Hum Insulin NPH/Reg Insulin Hm [NovoLIN 70/30] 80 unit SUBCUT DAILY W/ BREAKFAST Hum Insulin NPH/Reg Insulin Hm [NovoLIN 70/30] 60 unit SUBCUT DAILY W/SUPPER metFORMIN [Glucophage] 850 mg PO TID W/MEALS Pregabalin [Lyrica] 100 mg PO BID Tizanidine HCl 4 mg PO BEDTIME #15 capsule Lisinopril/Hydrochlorothiazide [Lisinopril-Hctz 20-12.5 mg Tab] 2 each PO DAILY Lovastatin 40 mg PO BEDTIME - Follow Up or Referral - Forms/Instructions Exam - Constitutional Vitals: Period Temp Pulse Resp BP Sys/Camp Pulse Ox Last 24 Hr 97 F-98.0 F 90-105 16-22 110-141/61-81 95-100 General appearance: normal weight, no acute distress - Head Head exam: Present: normal inspection, normocephalic, atraumatic - Eye Eye exam: Present: EOMI Pupils: Present: MURIEL - ENT ENT exam: Present: normal exam - Neck Neck exam: Present: normal inspection - Respiratory Respiratory exam: Present: clear to auscultation bilaterally - Cardiovascular Cardiovascular exam: Present: regular rate and rhythm - GI/Abdominal GI/Abdominal exam: Present: normal bowel sounds - Extremities Exam Extremities exam: Present: normal inspection Discharge Results Labs on day of discharge: Labs from last 24 hours 01/01/17 01/01/17 01/01/17 07:37 04:41 04:41 WBC 9.7 RBC 3.98 Hgb 11.7 L Hct 36.8 MCV 92.5 MCH 29 MCHC 31.8 L RDW 13.0 Plt Count 265 MPV 11.9 Neut % (Auto) 47.4 Lymph % (Auto) 41.1 [place] % (Auto) 7.9 Eos % (Auto) 2.6 Baso % (Auto) 0.4 Neut # (Auto) 4.6 Lymph # (Auto) 4.0 [place] # (Auto) 0.8 Eos # (Auto) 0.3 Baso # (Auto) 0.0 Immature Gran % 0.6 Nucleated RBC % 0.2 Immature Gran # 0.06 Nucleated RBCs # 0.02 Sodium 143 Potassium 4.6 Chloride 107 Carbon Dioxide 23 Anion Gap 17.6 H BUN 10 Creatinine 0.70 GFR Calculation 164 BUN/Creatinine Ratio 14.00 Glucose 298 H POC Glucose 264 H Calculated Osmolality 294.0 Calcium 8.5 12/31/16 12/31/16 12/31/16 20:42 16:21 12:31 WBC RBC Hgb Hct MCV MCH MCHC RDW Plt Count MPV Neut % (Auto) Lymph % (Auto) [place] % (Auto) Eos % (Auto) Baso % (Auto) Neut # (Auto) Lymph # (Auto) [place] # (Auto) Eos # (Auto) Baso # (Auto) Immature Gran % Nucleated RBC % Immature Gran # Nucleated RBCs # Sodium Potassium Chloride Carbon Dioxide Anion Gap BUN Creatinine GFR Calculation BUN/Creatinine Ratio Glucose POC Glucose 288 H 297 H 274 H Calculated Osmolality Calcium DS: Provider Date of admission: 12/29/16 04:35 Primary care physician: . 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
[2017-01-01 12:27] VITALS: BP 139/90
== END 2017-01-01 16:15 | disposition home or self-care (01) | DRG 144 ==
LOC: N.ED 22:27 → N.EDINP 12-29 04:35 → N.2E 12-29 10:42
PROVIDERS: ADMIT Internal Medicine; ATTEND Internal Medicine

== ENCOUNTER 2020-05-31 09:51 | Inpatient (IN) ==
[2020-05-31] MEDS ORDERED: SODIUM CHLORIDE 0.9% 500 ML IV STA (10:53)
[2020-05-31] MEDS ORDERED: MORPHINE 4 MG/1 ML VIAL IV STA ×2 (11:18→12:28)
[2020-05-31] MEDS ORDERED: MORPHINE 4 MG/1 ML VIAL ONE (11:19)
[2020-05-31 11:34] LABS: Basophils # 0.1 10*3/uL (0.0-0.2); Basophils % 0.5 % (0.0-0.8); Eosinophils # 0.1 10*3/uL (0.0-0.87); Eosinophils % 0.6 % (0.00-10.9); Hematocrit 33.8 VOL% (35.7-47.0); Hemoglobin 11.3 GM/DL (12.0-16.0); Immature Granulocytes % 1.3 %; Immature Granulocytes Absolute 0.22 #; Lymphocytes # 2.3 10*3/uL (1.4-4.0); Mean Corpuscular HGB Conc 33.4 GM/DL (32-36); Mean Corpuscular Volume 87.8 FL (87-102); Mean Platelet Volume 11.3 FL (9.6-12.0); Monocytes % 12.5 % (1.7-12.7); Neutrophils % 71.1 % (38.7-73.9); Platelet Count 313 T/CUMM (130-400); Red Blood Count 3.85 MC/CUMM (3.8-5.5); Red Cell Distribution Width 11.9 % (9.3-17.3); White Blood Count 16.4 T/CUMM (4-12)
[2020-05-31 11:58] LABS: Alanine Aminotransferase 14 U/L (13-56); Albumin 2.6 G/DL (3.4-5.0); Alkaline Phosphatase 110 U/L (45-117); Aspartate Amino Transferase 12 U/L (0-37); Blood Urea Nitrogen 14 MG/DL (7-18); Calcium 10.1 MG/DL (8.5-10.1); Estimated Glom Filtration Rate 75 ML/MIN; Osmolality,Calculated 279.6 MOS/KG (273-304); Total Protein 8.1 G/DL (6.4-8.3)
[2020-05-31 12:00] LABS: Glucose 631 MG/DL (74-106)
[2020-05-31 12:12] LABS: Apearance,Urine CLOUDY (Clear); Bacteria,Urine Occasional /HPF (Few); Bilirubin,Urine Negative (Negative); Blood, Urine Small mg/dL (Negative); Glucose,Urine (UA) >=500 mg/dL (Negative); Hyaline Casts,Urine 1 /LPF (0-3); Ketones,Urine Negative (Negative); Mucus,Urine Occasional /LPF (Occasional); Nitrite,Urine Negative (Negative); Protein,Urine Negative; RBC,Urine 6 /HPF (0-4); Squamous Epithelial Cell,Urine Occasional /HPF (0-10); Urine Color Yellow (Yellow); Urine Specific Gravity 1.025 (1.001-1.035); Urine Urobilinogen < 2.0 EU/DL (0.2-1.0); WBC,Urine 5 /HPF (0-6)
[2020-05-31] MEDS ORDERED: SODIUM CHLORIDE 0.9% 1,000 ML IV STA (12:28)
[2020-05-31] MEDS ORDERED: CLINDAMYCIN INJ 600 MG in PREMIX 1 EACH IV STA (12:29)
[2020-05-31] MEDS ORDERED: INSULIN REGULAR 100 UNIT/ML IV STA (12:34)
[2020-05-31] MEDS ORDERED: INSULIN LISPRO 100 UNIT/ML SUBCUT STA (12:38)
[2020-05-31] MEDS ORDERED: GLUCAGON 1 MG VIAL IM PRN ×2 (12:41→13:09)
[2020-05-31] MEDS ORDERED: MORPHINE 4 MG/1 ML VIAL IV PRN (12:41)
[2020-05-31] MEDS ORDERED: DEXTROSE 50% 25 GM/50 ML VIAL IV PRN ×2 (12:41→13:09)
[2020-05-31] MEDS ORDERED: ACETAMINOPHEN 325 MG TABLET PO PRN (12:41)
[2020-05-31] MEDS ORDERED: hydrALAZINE 20 MG/1 ML VIAL IV PRN (12:41)
[2020-05-31 12:50] LABS: Lymphocytes 18 % (20-55); Platelet Estimate Adequate; Segmented Neutrophils 72 % (50-85); Total Cells Counted 100
[2020-05-31] MEDS ORDERED: SILVER NITRATE STICK 1 EACH TOP ONE (13:18)
[2020-05-31] MEDS: SODIUM CHLORIDE 0.9% 1,000 ML IV SCH ×2 (14:12→22:28)
[2020-05-31] MEDS: INSULIN LISPRO 100 UNIT/ML SUBCUT SCH ×4 (15:29→23:11)
[2020-05-31] MEDS: LEVOFLOXACIN INJ 750 MG in PREMIX 1 EACH IV SCH (15:56)
[2020-05-31] MEDS: CLINDAMYCIN INJ 900 MG in PREMIX 1 EACH IV SCH ×2 (17:45→22:28)
[2020-05-31] MEDS: INSULIN NPH/REGULAR 70/30 100 UNIT/ML SUBCUT SCH (18:34)
[2020-05-31] MEDS ORDERED: ENOXAPARIN 40 MG/0.4 ML SYRINGE SUBCUT SCH (21:00)
[2020-06-01] MEDS: CLINDAMYCIN INJ 900 MG in PREMIX 1 EACH IV SCH ×4 (04:46→23:51)
[2020-06-01] MEDS: INSULIN LISPRO 100 UNIT/ML SUBCUT SCH ×5 (04:53→21:16)
[2020-06-01 05:11] LABS: Basophils # 0.1 10*3/uL (0.0-0.2); Basophils % 0.6 % (0.0-0.8); Eosinophils # 0.2 10*3/uL (0.0-0.87); Eosinophils % 0.8 % (0.00-10.9); Hematocrit 36.1 VOL% (35.7-47.0); Hemoglobin 11.7 GM/DL (12.0-16.0); Immature Granulocytes % 3.3 %; Immature Granulocytes Absolute 0.59 #; Lymphocytes # 3.8 10*3/uL (1.4-4.0); Mean Corpuscular HGB Conc 32.4 GM/DL (32-36); Mean Corpuscular Volume 89.1 FL (87-102); Mean Platelet Volume 11.1 FL (9.6-12.0); Monocytes % 15.2 % (1.7-12.7); Neutrophils % 59.1 % (38.7-73.9); Platelet Count 374 T/CUMM (130-400); Red Blood Count 4.05 MC/CUMM (3.8-5.5)
[2020-06-01 05:32] LABS: Band Neutrophils 1 % (0-10); Eosinophils 1 % (0-10); Hypochromasia 1+; Lymphocytes 23 % (20-55); Platelet Estimate Adequate; Segmented Neutrophils 60 % (50-85); Total Cells Counted 100
[2020-06-01 05:36] LABS: Alanine Aminotransferase 20 U/L (13-56); Albumin 2.5 G/DL (3.4-5.0); Alkaline Phosphatase 109 U/L (45-117); Aspartate Amino Transferase 16 U/L (0-37); Bilirubin,Total < 0.39 MG/DL (0.2-1.0); Blood Urea Nitrogen 12 MG/DL (7-18); Calcium 10.1 MG/DL (8.5-10.1); Estimated Glom Filtration Rate 75 ML/MIN; Glucose 290 MG/DL (74-106); HDL Cholesterol 34 MG/DL (40-60); Osmolality,Calculated 268.9 MOS/KG (273-304); Risk Ratio 2.29; Total Protein 8.3 G/DL (6.4-8.3); Triglycerides 121 MG/DL (2-150); VLDL CHOLESTEROL 24.2 MG/DL
[2020-06-01] MEDS ORDERED: LACTATED RINGERS 1,000 ML IV SCH (07:00)
[2020-06-01] MEDS ORDERED: LIDOCAINE 1% 20 ML VIAL MISC INJ ONE (07:45)
[2020-06-01] MEDS ORDERED: LIDOCAINE 50 MG/5 ML SYRINGE ONE (07:47)
[2020-06-01] MEDS ORDERED: SEVOFLURANE 1 UNIT/15 MINUTE INH ONE (07:51)
[2020-06-01] MEDS ORDERED: ONDANSETRON 4 MG/2 ML VIAL ONE ×2 (07:51→08:11)
[2020-06-01] MEDS ORDERED: fentaNYL 100 MCG/2 ML VIAL ONE (07:51)
[2020-06-01] MEDS ORDERED: propofoL 200 MG/20 ML VIAL IV ONE (07:51)
[2020-06-01] MEDS ORDERED: METOCLOPRAMIDE 10 MG/2 ML VIAL ONE (07:51)
[2020-06-01] MEDS ORDERED: LIDOCAINE 2% 5 ML VIAL ONE (07:51)
[2020-06-01] MEDS ORDERED: ROCURONIUM 100 MG/10 ML VIAL IV ONE (07:52)
[2020-06-01] MEDS ORDERED: SUCCINYLCHOLINE 200 MG/10 ML VIAL ONE (07:52)
[2020-06-01] MEDS ORDERED: ALBUTEROL 2.5 MG/3 ML NEB RESP TX ONE ×2 (07:54→07:57)
[2020-06-01] MEDS ORDERED: HYDROmorphone 2 MG/1 ML VIAL IV PRN (08:09)
[2020-06-01] MEDS ORDERED: ONDANSETRON 4 MG/2 ML VIAL IV PRN (08:09)
[2020-06-01] MEDS ORDERED: HYDROmorphone 2 MG/1 ML VIAL ONE (08:11)
[2020-06-01] MEDS: SODIUM CHLORIDE 0.9% 1,000 ML IV SCH ×3 (10:13→22:40)
[2020-06-01] MEDS: INSULIN NPH/REGULAR 70/30 100 UNIT/ML SUBCUT SCH ×2 (10:19→16:55)
[2020-06-01] MEDS: POTASSIUM CHLORIDE RIDER 10 MEQ in PREMIX 1 EACH IV SCH ×3 (11:21→15:42)
[2020-06-01] MEDS ORDERED: POTASSIUM CHLORIDE RIDER 10 MEQ in PREMIX 1 EACH IV SCH (15:00)
[2020-06-01] MEDS: LEVOFLOXACIN INJ 750 MG in PREMIX 1 EACH IV SCH (16:56)
[2020-06-01] MEDS: MORPHINE 4 MG/1 ML VIAL IV PRN (17:03)
[2020-06-02] MEDS: CLINDAMYCIN INJ 900 MG in PREMIX 1 EACH IV SCH ×2 (04:36→09:20)
[2020-06-02 05:25] LABS: Basophils # 0.1 10*3/uL (0.0-0.2); Basophils % 0.5 % (0.0-0.8); Eosinophils # 0.3 10*3/uL (0.0-0.87); Eosinophils % 1.3 % (0.00-10.9); Hematocrit 31.5 VOL% (35.7-47.0); Hemoglobin 10.3 GM/DL (12.0-16.0); Lymphocytes # 3.8 10*3/uL (1.4-4.0); Lymphocytes % 19.1 % (21.3-54.2); Mean Corpuscular HGB Conc 32.7 GM/DL (32-36); Mean Corpuscular Volume 89.7 FL (87-102); Mean Platelet Volume 10.5 FL (9.6-12.0); NRBC # 0.02 10*3/uL; Neutrophils % 63.1 % (38.7-73.9); Platelet Count 338 T/CUMM (130-400); Red Blood Count 3.51 MC/CUMM (3.8-5.5); Red Cell Distribution Width 12.3 % (9.3-17.3)
[2020-06-02 05:47] LABS: Atypical Lymphocytes Few; Band Neutrophils 4 % (0-10); Hypochromasia 1+; Lymphocytes 21 % (20-55); Myelocytes 1 %; Segmented Neutrophils 65 % (50-85); Total Cells Counted 100
[2020-06-02 05:48] LABS: Calcium 9.2 MG/DL (8.5-10.1); Microcytosis Slight; Osmolality,Calculated 272.8 MOS/KG (273-304)
[2020-06-02] MEDS ORDERED: POTASSIUM CHLORIDE 20 MEQ TABLET PO ONE (07:30)
[2020-06-02] MEDS ORDERED: MAGNESIUM SULF RIDER 2 GM in PREMIX 1 EACH IV ONE (07:30)
[2020-06-02] MEDS: MORPHINE 4 MG/1 ML VIAL IV PRN ×2 (08:29→22:58)
[2020-06-02] MEDS: INSULIN LISPRO 100 UNIT/ML SUBCUT SCH ×4 (08:40→21:54)
[2020-06-02] MEDS: glipiZIDE 5 MG TABLET PO SCH ×2 (09:19→16:28)
[2020-06-02] MEDS: LACTATED RINGERS 1,000 ML IV SCH ×2 (09:20→22:10)
[2020-06-02] MEDS: INSULIN NPH/REGULAR 70/30 100 UNIT/ML SUBCUT SCH (09:21)
[2020-06-02] MEDS: INSULIN GLARGINE 100 UNIT/ML SUBCUT SCH (10:36)
[2020-06-02] MEDS: LEVOFLOXACIN INJ 750 MG in PREMIX 1 EACH IV SCH (14:03)
[2020-06-02] MEDS ORDERED: VANCOMYCIN INJ 1,500 MG in SODIUM CHLORIDE 0.9% 500 ML IV ONE (16:00)
[2020-06-02] MEDS: SODIUM CHLORIDE 0.9% 1,000 ML IV SCH (16:15)
[2020-06-02] MEDS: ONDANSETRON 4 MG/2 ML VIAL IV PRN (19:50)
[2020-06-03] MEDS: MORPHINE 4 MG/1 ML VIAL IV PRN ×4 (03:39→23:47)
[2020-06-03] MEDS: VANCOMYCIN INJ 1,000 MG in SODIUM CHLORIDE 0.9% 250 ML IV SCH ×2 (04:30→16:48)
[2020-06-03 07:48] LABS: Basophils # 0.1 10*3/uL (0.0-0.2); Basophils % 0.7 % (0.0-0.8); Eosinophils # 0.3 10*3/uL (0.0-0.87); Eosinophils % 2.4 % (0.00-10.9); Hematocrit 33.3 VOL% (35.7-47.0); Hemoglobin 10.9 GM/DL (12.0-16.0); Immature Granulocytes % 4.9 %; Immature Granulocytes Absolute 0.62 #; Lymphocytes % 23.7 % (21.3-54.2); Mean Corpuscular HGB Conc 32.7 GM/DL (32-36); Mean Corpuscular Volume 88.6 FL (87-102); Mean Platelet Volume 10.4 FL (9.6-12.0); NRBC # 0.02 10*3/uL; Neutrophils % 59.3 % (38.7-73.9); Platelet Count 371 T/CUMM (130-400); Red Blood Count 3.76 MC/CUMM (3.8-5.5); Red Cell Distribution Width 12.6 % (9.3-17.3); White Blood Count 12.8 T/CUMM (4-12)
[2020-06-03 08:02] LABS: Calcium 9.2 MG/DL (8.5-10.1); Osmolality,Calculated 279.7 MOS/KG (273-304)
[2020-06-03 08:08] LABS: Atypical Lymphocytes Few; Eosinophils 3 % (0-10); Hypochromasia 1+; Lymphocytes 26 % (20-55); Segmented Neutrophils 63 % (50-85); Total Cells Counted 100
[2020-06-03 08:09] LABS: Microcytosis Slight; Platelet Estimate Normal
[2020-06-03] MEDS: ATORVASTATIN 40 MG TABLET PO SCH (08:39)
[2020-06-03] MEDS: glipiZIDE 5 MG TABLET PO SCH ×2 (08:39→16:47)
[2020-06-03] MEDS: INSULIN LISPRO 100 UNIT/ML SUBCUT SCH ×4 (08:40→21:33)
[2020-06-03] MEDS: INSULIN GLARGINE 100 UNIT/ML SUBCUT SCH (08:40)
[2020-06-03] MEDS ORDERED: MAGNESIUM SULF RIDER 2 GM in PREMIX 1 EACH IV ONE (08:48)
[2020-06-03] MEDS: SODIUM HYPOCHLORITE 0.25% IRRIG 473 ML BOTTLE TOP SCH (10:00)
[2020-06-03] MEDS ORDERED: MAGNESIUM SULF RIDER 4 GM in PREMIX 1 EACH IV ONE (12:00)
[2020-06-03] MEDS ORDERED: MAGNESIUM HYDROXIDE SUSP 30 ML UDCUP PO SCH (21:00)
[2020-06-03] MEDS: MAGNESIUM HYDROXIDE SUSP 30 ML UDCUP PO PRN (21:32)
[2020-06-04] MEDS: LACTATED RINGERS 1,000 ML IV SCH ×3 (01:36→15:15)
[2020-06-04] MEDS: VANCOMYCIN INJ 1,000 MG in SODIUM CHLORIDE 0.9% 250 ML IV SCH ×2 (04:45→16:55)
[2020-06-04 06:07] LABS: Basophils # 0.1 10*3/uL (0.0-0.2); Basophils % 0.7 % (0.0-0.8); Eosinophils # 0.3 10*3/uL (0.0-0.87); Eosinophils % 2.5 % (0.00-10.9); Hematocrit 33.9 VOL% (35.7-47.0); Hemoglobin 10.8 GM/DL (12.0-16.0); Immature Granulocytes % 4.5 %; Immature Granulocytes Absolute 0.59 #; Lymphocytes # 4.2 10*3/uL (1.4-4.0); Lymphocytes % 31.9 % (21.3-54.2); Mean Corpuscular HGB Conc 31.9 GM/DL (32-36); Mean Corpuscular Volume 90.4 FL (87-102); Mean Platelet Volume 10.4 FL (9.6-12.0); Monocytes % 9.6 % (1.7-12.7); NRBC # 0.05 10*3/uL; Neutrophils % 50.8 % (38.7-73.9); Platelet Count 455 T/CUMM (130-400); Red Blood Count 3.75 MC/CUMM (3.8-5.5); Red Cell Distribution Width 12.6 % (9.3-17.3); White Blood Count 13.1 T/CUMM (4-12)
[2020-06-04 06:31] LABS: Calcium 9.3 MG/DL (8.5-10.1); Osmolality,Calculated 279.5 MOS/KG (273-304)
[2020-06-04 06:37] LABS: Total Cells Counted 100
[2020-06-04 06:38] LABS: Anisocytosis Slight; Band Neutrophils 1 % (0-10); Eosinophils 2 % (0-10); Lymphocytes 31 % (20-55); Macrocytosis Slight; Metamyelocytes 3 %; Myelocytes 1 %; Platelet Estimate Increased; Segmented Neutrophils 52 % (50-85)
[2020-06-04] MEDS: glipiZIDE 5 MG TABLET PO SCH ×2 (08:49→16:10)
[2020-06-04] MEDS: SODIUM HYPOCHLORITE 0.25% IRRIG 473 ML BOTTLE TOP SCH (08:50)
[2020-06-04] MEDS: INSULIN LISPRO 100 UNIT/ML SUBCUT SCH ×4 (08:50→21:15)
[2020-06-04] MEDS: INSULIN GLARGINE 100 UNIT/ML SUBCUT SCH ×2 (08:51→10:45)
[2020-06-04] MEDS: ATORVASTATIN 40 MG TABLET PO SCH (08:51)
[2020-06-04] MEDS ORDERED: LIDOCAINE 1%/EPI INJ 20 ML VIAL ONE (09:05)
[2020-06-04] MEDS ORDERED: cefTRIAXone 1,000 MG in SYRINGE 1 EACH IV SCH (10:00)
[2020-06-04] MEDS ORDERED: DESFLURANE 1 UNIT/15 MINUTE INH ONE (10:23)
[2020-06-04] MEDS ORDERED: LIDOCAINE 2% 5 ML VIAL ONE (10:23)
[2020-06-04] MEDS ORDERED: propofoL 200 MG/20 ML VIAL IV ONE (10:23)
[2020-06-04] MEDS ORDERED: MIDAZOLAM 2 MG/2 ML VIAL ONE (10:23)
[2020-06-04] MEDS ORDERED: SUCCINYLCHOLINE 200 MG/10 ML VIAL ONE (10:24)
[2020-06-04] MEDS ORDERED: fentaNYL 100 MCG/2 ML VIAL ONE (10:24)
[2020-06-04] MEDS ORDERED: PHENYLEPHRINE 1 MG/10 ML SYRINGE IV ONE (10:24)
[2020-06-04] MEDS ORDERED: ONDANSETRON 4 MG/2 ML VIAL ONE ×2 (10:24→10:35)
[2020-06-04] MEDS ORDERED: DEXAMETHASONE 4 MG/1 ML VIAL ONE (10:24)
[2020-06-04] MEDS ORDERED: HYDROmorphone 2 MG/1 ML VIAL ONE (10:35)
[2020-06-04] MEDS ORDERED: ONDANSETRON 4 MG/2 ML VIAL IV PRN (10:36)
[2020-06-04] MEDS: HYDROmorphone 2 MG/1 ML VIAL IV PRN ×2 (10:37→10:48)
[2020-06-04] MEDS: MORPHINE 4 MG/1 ML VIAL IV PRN (14:39)
[2020-06-04] MEDS: MAGNESIUM HYDROXIDE SUSP 30 ML UDCUP PO PRN (17:54)
[2020-06-05] MEDS: LACTATED RINGERS 1,000 ML IV SCH ×3 (00:33→17:46)
[2020-06-05] MEDS: VANCOMYCIN INJ 1,000 MG in SODIUM CHLORIDE 0.9% 250 ML IV SCH (05:12)
[2020-06-05 06:03] LABS: Basophils # 0.1 10*3/uL (0.0-0.2); Basophils % 0.4 % (0.0-0.8); Eosinophils # 0.1 10*3/uL (0.0-0.87); Eosinophils % 0.8 % (0.00-10.9); Hematocrit 30.6 VOL% (35.7-47.0); Hemoglobin 9.8 GM/DL (12.0-16.0); Immature Granulocytes % 3.2 %; Immature Granulocytes Absolute 0.53 #; Lymphocytes % 30.3 % (21.3-54.2); Mean Corpuscular Volume 90.3 FL (87-102); Mean Platelet Volume 10.8 FL (9.6-12.0); Monocytes % 8.3 % (1.7-12.7); NRBC # 0.04 10*3/uL; Platelet Count 431 T/CUMM (130-400); Red Blood Count 3.39 MC/CUMM (3.8-5.5); Red Cell Distribution Width 12.7 % (9.3-17.3); White Blood Count 16.5 T/CUMM (4-12)
[2020-06-05 06:17] LABS: Calcium 9.4 MG/DL (8.5-10.1); Osmolality,Calculated 280.5 MOS/KG (273-304)
[2020-06-05] MEDS: INSULIN GLARGINE 100 UNIT/ML SUBCUT SCH (08:25)
[2020-06-05] MEDS: LACTOBACILLUS ACIDOPHILUS/BULGARICUS CAPLET PO SCH ×2 (08:26→21:11)
[2020-06-05] MEDS: CLINDAMYCIN INJ 600 MG in PREMIX 1 EACH IV SCH ×3 (08:27→21:12)
[2020-06-05] MEDS: INSULIN LISPRO 100 UNIT/ML SUBCUT SCH ×4 (08:42→21:10)
[2020-06-05] MEDS: ATORVASTATIN 40 MG TABLET PO SCH (08:42)
[2020-06-05] MEDS: glipiZIDE 5 MG TABLET PO SCH ×2 (08:42→15:55)
[2020-06-05 08:56] LABS: Atypical Lymphocytes Few; Band Neutrophils 1 % (0-10); Lymphocytes 34 % (20-55); Platelet Estimate Normal; Segmented Neutrophils 59 % (50-85); Total Cells Counted 100
[2020-06-05 08:58] LABS: Anisocytosis 2+; Polychromasia Slight
[2020-06-05] MEDS: SODIUM HYPOCHLORITE 0.25% IRRIG 473 ML BOTTLE TOP SCH (10:04)
[2020-06-05] MEDS: ONDANSETRON 4 MG/2 ML VIAL IV PRN (13:30)
[2020-06-05] MEDS: MORPHINE 4 MG/1 ML VIAL IV PRN ×3 (13:30→22:37)
[2020-06-05] MEDS: metFORMIN 850 MG TABLET PO SCH ×2 (15:51→21:11)
[2020-06-05] MEDS: diphenhydrAMINE CAP 25 MG CAPSULE PO PRN (22:38)
[2020-06-06] MEDS: CLINDAMYCIN INJ 600 MG in PREMIX 1 EACH IV SCH ×4 (01:28→20:43)
[2020-06-06] MEDS: MORPHINE 4 MG/1 ML VIAL IV PRN ×3 (03:45→14:47)
[2020-06-06] MEDS: diphenhydrAMINE CAP 25 MG CAPSULE PO PRN ×2 (04:40→21:33)
[2020-06-06] MEDS: LACTOBACILLUS ACIDOPHILUS/BULGARICUS CAPLET PO SCH ×2 (08:23→20:44)
[2020-06-06] MEDS: glipiZIDE 5 MG TABLET PO SCH ×2 (08:23→16:30)
[2020-06-06] MEDS: ATORVASTATIN 40 MG TABLET PO SCH (08:24)
[2020-06-06] MEDS: INSULIN GLARGINE 100 UNIT/ML SUBCUT SCH (08:24)
[2020-06-06] MEDS: metFORMIN 850 MG TABLET PO SCH ×3 (08:24→20:45)
[2020-06-06] MEDS: SODIUM HYPOCHLORITE 0.25% IRRIG 473 ML BOTTLE TOP SCH (08:26)
[2020-06-06] MEDS: FLUCONAZOLE 100 MG TABLET PO SCH (08:26)
[2020-06-06] MEDS: INSULIN LISPRO 100 UNIT/ML SUBCUT SCH ×4 (08:27→21:36)
[2020-06-06] MEDS: ONDANSETRON 4 MG/2 ML VIAL IV PRN (08:30)
[2020-06-06 08:40] LABS: Basophils # 0.1 10*3/uL (0.0-0.2); Basophils % 0.7 % (0.0-0.8); Eosinophils # 0.3 10*3/uL (0.0-0.87); Eosinophils % 1.8 % (0.00-10.9); Hematocrit 33.3 VOL% (35.7-47.0); Hemoglobin 10.4 GM/DL (12.0-16.0); Immature Granulocytes % 4.9 %; Immature Granulocytes Absolute 0.67 #; Lymphocytes % 36.6 % (21.3-54.2); Mean Corpuscular HGB Conc 31.2 GM/DL (32-36); Mean Corpuscular Volume 93.3 FL (87-102); Mean Platelet Volume 11.5 FL (9.6-12.0); Monocytes % 7.2 % (1.7-12.7); NRBC # 0.09 10*3/uL; Neutrophils % 48.8 % (38.7-73.9); Platelet Count 288 T/CUMM (130-400); Red Blood Count 3.57 MC/CUMM (3.8-5.5); Red Cell Distribution Width 12.9 % (9.3-17.3); White Blood Count 13.7 T/CUMM (4-12)
[2020-06-06 09:06] LABS: Calcium 9.1 MG/DL (8.5-10.1); Osmolality,Calculated 274.7 MOS/KG (273-304)
[2020-06-06 09:18] LABS: Anisocytosis 1+; Atypical Lymphocytes Few; Band Neutrophils 4 % (0-10); Eosinophils 1 % (0-10); Lymphocytes 41 % (20-55); Platelet Estimate Normal; Segmented Neutrophils 47 % (50-85); Smudge Cells Few; Total Cells Counted 100
[2020-06-06] MEDS ORDERED: MAGNESIUM SULF RIDER 4 GM in PREMIX 1 EACH IV ONE (10:00)
[2020-06-06] MEDS: LACTATED RINGERS 1,000 ML IV SCH (11:52)
[2020-06-06] MEDS: PANTOPRAZOLE 40 MG TABLET PO SCH (11:52)
[2020-06-06] MEDS: lisinopriL 5 MG TABLET PO SCH (20:44)
[2020-06-07] MEDS: CLINDAMYCIN INJ 600 MG in PREMIX 1 EACH IV SCH ×3 (02:34→14:07)
[2020-06-07] MEDS: LACTATED RINGERS 1,000 ML IV SCH ×2 (02:36→10:25)
[2020-06-07] MEDS: INSULIN LISPRO 100 UNIT/ML SUBCUT SCH ×2 (07:37→12:33)
[2020-06-07] MEDS ORDERED: MAGNESIUM SULF RIDER 4 GM in PREMIX 1 EACH IV PRN (07:43)
[2020-06-07] MEDS ORDERED: MAGNESIUM SULF RIDER 2 GM in PREMIX 1 EACH IV PRN (07:43)
[2020-06-07] MEDS: FLUCONAZOLE 100 MG TABLET PO SCH (08:48)
[2020-06-07] MEDS: glipiZIDE 5 MG TABLET PO SCH (08:48)
[2020-06-07] MEDS: LACTOBACILLUS ACIDOPHILUS/BULGARICUS CAPLET PO SCH (08:48)
[2020-06-07] MEDS: SODIUM HYPOCHLORITE 0.25% IRRIG 473 ML BOTTLE TOP SCH (08:48)
[2020-06-07] MEDS: lisinopriL 5 MG TABLET PO SCH (08:49)
[2020-06-07] MEDS: ATORVASTATIN 40 MG TABLET PO SCH (08:49)
[2020-06-07] MEDS: INSULIN GLARGINE 100 UNIT/ML SUBCUT SCH ×2 (08:49→10:59)
[2020-06-07] MEDS: PANTOPRAZOLE 40 MG TABLET PO SCH (08:49)
[2020-06-07] MEDS: metFORMIN 850 MG TABLET PO SCH (09:32)
[2020-06-07 11:48] VITALS: BP 135/70
== END 2020-06-07 14:57 | disposition home or self-care (01) | DRG 623 ==
LOC: N.ED 09:51 → N.EDINP 12:41 → SUATTDRO 12:41 → N.3E 14:30
PROVIDERS: ADMIT Internal Medicine; ATTEND Internal Medicine

== ENCOUNTER 2020-06-10 13:35 | Observation (INO) ==
[2020-06-10 14:48] LABS: Basophils # 0.1 10*3/uL (0.0-0.2); Basophils % 0.5 % (0.0-0.8); Eosinophils # 0.1 10*3/uL (0.0-0.87); Hemoglobin 10.4 GM/DL (12.0-16.0); Immature Granulocytes % 1.2 %; Immature Granulocytes Absolute 0.12 #; Lymphocytes # 3.2 10*3/uL (1.4-4.0); Lymphocytes % 30.7 % (21.3-54.2); Mean Corpuscular HGB Conc 31.5 GM/DL (32-36); Mean Platelet Volume 9.7 FL (9.6-12.0); NRBC # 0.08 10*3/uL; Neutrophils % 59.6 % (38.7-73.9); Platelet Count 603 T/CUMM (130-400); Red Blood Count 3.51 MC/CUMM (3.8-5.5); Red Cell Distribution Width 13.5 % (9.3-17.3); White Blood Count 10.3 T/CUMM (4-12)
[2020-06-10 15:02] LABS: Alanine Aminotransferase 30 U/L (13-56); Alkaline Phosphatase 79 U/L (45-117); Aspartate Amino Transferase 20 U/L (0-37); Bilirubin,Total < 0.39 MG/DL (0.2-1.0); Blood Urea Nitrogen 4 MG/DL (7-18); Calcium 9.6 MG/DL (8.5-10.1); Estimated Glom Filtration Rate 162 ML/MIN; Glucose 169 MG/DL (74-106); Osmolality,Calculated 281.3 MOS/KG (273-304); Total Protein 6.8 G/DL (6.4-8.3)
[2020-06-10] MEDS ORDERED: cefTRIAXone 1,000 MG in SODIUM CHLORIDE 0.9% 100 ML IV STA (16:18)
[2020-06-10] MEDS ORDERED: SODIUM CHLORIDE 0.9% 500 ML IV STA (16:18)
[2020-06-10] MEDS ORDERED: KETOROLAC 30 MG/1 ML VIAL IV STA (16:39)
[2020-06-10 16:48] LABS: Apearance,Urine Slightly Hazy (Clear); Bacteria,Urine Occasional /HPF (Few); Bilirubin,Urine Negative (Negative); Blood, Urine Negative (Negative); Glucose,Urine (UA) Negative (Negative); Hyaline Casts,Urine 3 /LPF (0-3); Ketones,Urine Negative (Negative); Nitrite,Urine Negative (Negative); Protein,Urine Negative; RBC,Urine 1 /HPF (0-4); Squamous Epithelial Cell,Urine Occasional /HPF (0-10); Urine Color Yellow (Yellow); Urine Specific Gravity 1.036 (1.001-1.035); Urine Urobilinogen < 2.0 EU/DL (0.2-1.0); WBC,Urine 3 /HPF (0-6)
[2020-06-10] MEDS ORDERED: ONDANSETRON 4 MG/2 ML VIAL IV PRN (17:12)
[2020-06-10] MEDS ORDERED: MAGNESIUM SULF RIDER 4 GM in PREMIX 1 EACH IV PRN (17:12)
[2020-06-10] MEDS ORDERED: GLUCAGON 1 MG VIAL IM PRN (17:12)
[2020-06-10] MEDS ORDERED: MAGNESIUM SULF RIDER 2 GM in PREMIX 1 EACH IV PRN (17:12)
[2020-06-10] MEDS ORDERED: DEXTROSE 50% 25 GM/50 ML VIAL IV PRN ×2 (17:12→17:24)
[2020-06-10] MEDS ORDERED: hydrALAZINE 20 MG/1 ML VIAL IV PRN (17:12)
[2020-06-10] MEDS ORDERED: diphenhydrAMINE 50 MG/1 ML VIAL IV STA (17:43)
[2020-06-10] MEDS: FUROSEMIDE 20 MG/2 ML VIAL IV SCH (19:07)
[2020-06-10] MEDS: ENOXAPARIN 40 MG/0.4 ML SYRINGE SUBCUT SCH (19:07)
[2020-06-10] MEDS: INSULIN LISPRO 100 UNIT/ML SUBCUT SCH (20:14)
[2020-06-10] MEDS ORDERED: ZALEPLON 5 MG CAPSULE PO PRN (21:20)
[2020-06-11 05:15] LABS: Basophils % 0.4 % (0.0-0.8); Eosinophils # 0.1 10*3/uL (0.0-0.87); Eosinophils % 1.2 % (0.00-10.9); Hematocrit 31.5 VOL% (35.7-47.0); Hemoglobin 9.6 GM/DL (12.0-16.0); Immature Granulocytes % 0.7 %; Immature Granulocytes Absolute 0.07 #; Lymphocytes % 37.6 % (21.3-54.2); Mean Corpuscular HGB Conc 30.5 GM/DL (32-36); Mean Corpuscular Volume 95.2 FL (87-102); Mean Platelet Volume 9.5 FL (9.6-12.0); Monocytes % 6.9 % (1.7-12.7); NRBC # 0.05 10*3/uL; Neutrophils % 53.2 % (38.7-73.9); Platelet Count 528 T/CUMM (130-400); Red Blood Count 3.31 MC/CUMM (3.8-5.5); Red Cell Distribution Width 13.6 % (9.3-17.3); White Blood Count 10.7 T/CUMM (4-12)
[2020-06-11 05:46] LABS: Albumin 2.7 G/DL (3.4-5.0); Bilirubin,Total 0.6 MG/DL (0.2-1.0); Calcium 9.6 MG/DL (8.5-10.1); Osmolality,Calculated 281.5 MOS/KG (273-304); Risk Ratio 2.75; Thyroid Stimulating Hormone 1.35 uIU/ml (0.358-3.74); Total Protein 6.6 G/DL (6.4-8.3); VLDL CHOLESTEROL 25.6 MG/DL
[2020-06-11 05:59] LABS: Hypochromasia 1+; Macrocytosis Slight; Polychromasia Slight
[2020-06-11] MEDS: INSULIN LISPRO 100 UNIT/ML SUBCUT SCH ×4 (08:21→21:08)
[2020-06-11] MEDS: FUROSEMIDE 20 MG/2 ML VIAL IV SCH ×2 (08:21→16:28)
[2020-06-11] MEDS: PANTOPRAZOLE 40 MG TABLET PO SCH (08:21)
[2020-06-11] MEDS: ACETAMINOPHEN 325 MG TABLET PO PRN ×2 (08:32→21:04)
[2020-06-11] MEDS ORDERED: diphenhydrAMINE 25 MG/10 ML UDCUP PO ONE (09:46)
[2020-06-11] MEDS: AMOXICILLIN/CLAV 875 MG TABLET PO SCH ×2 (14:27→21:04)
[2020-06-11] MEDS: AZITHROMYCIN 250 MG TABLET PO SCH (14:27)
[2020-06-11] MEDS: glipiZIDE 5 MG TABLET PO SCH (16:28)
[2020-06-11] MEDS: ENOXAPARIN 40 MG/0.4 ML SYRINGE SUBCUT SCH (16:33)
[2020-06-11] MEDS ORDERED: metFORMIN 850 MG TABLET PO SCH (17:00)
[2020-06-11] MEDS: ATORVASTATIN 40 MG TABLET PO SCH (21:04)
[2020-06-11] MEDS: lisinopriL 5 MG TABLET PO SCH (21:04)
[2020-06-12 05:51] LABS: Basophils # 0.1 10*3/uL (0.0-0.2); Basophils % 0.7 % (0.0-0.8); Eosinophils # 0.2 10*3/uL (0.0-0.87); Eosinophils % 2.1 % (0.00-10.9); Hematocrit 30.9 VOL% (35.7-47.0); Hemoglobin 9.7 GM/DL (12.0-16.0); Immature Granulocytes % 0.5 %; Immature Granulocytes Absolute 0.04 #; Lymphocytes % 34.6 % (21.3-54.2); Mean Corpuscular HGB Conc 31.4 GM/DL (32-36); Mean Corpuscular Volume 93.1 FL (87-102); Mean Platelet Volume 9.2 FL (9.6-12.0); Monocytes % 7.9 % (1.7-12.7); NRBC # 0.04 10*3/uL; Neutrophils % 54.2 % (38.7-73.9); Platelet Count 499 T/CUMM (130-400); Red Blood Count 3.32 MC/CUMM (3.8-5.5); Red Cell Distribution Width 13.6 % (9.3-17.3); White Blood Count 8.6 T/CUMM (4-12)
[2020-06-12 06:21] LABS: Albumin 2.8 G/DL (3.4-5.0); Calcium 9.4 MG/DL (8.5-10.1); Osmolality,Calculated 283.3 MOS/KG (273-304); Total Protein 6.9 G/DL (6.4-8.3)
[2020-06-12 06:38] LABS: % Iron Saturation 9.9 % (18-50)
[2020-06-12] MEDS: AZITHROMYCIN 250 MG TABLET PO SCH (09:50)
[2020-06-12] MEDS: INSULIN LISPRO 100 UNIT/ML SUBCUT SCH ×4 (09:50→20:41)
[2020-06-12] MEDS: lisinopriL 5 MG TABLET PO SCH ×2 (09:51→20:41)
[2020-06-12] MEDS: glipiZIDE 5 MG TABLET PO SCH ×2 (09:51→16:58)
[2020-06-12] MEDS: PANTOPRAZOLE 40 MG TABLET PO SCH (09:51)
[2020-06-12] MEDS: FUROSEMIDE 20 MG/2 ML VIAL IV SCH ×2 (09:51→16:58)
[2020-06-12] MEDS: AMOXICILLIN/CLAV 875 MG TABLET PO SCH ×2 (09:51→20:41)
[2020-06-12] MEDS: SODIUM HYPOCHLORITE 0.25% IRRIG 473 ML BOTTLE TOP SCH (09:51)
[2020-06-12] MEDS: ATORVASTATIN 40 MG TABLET PO SCH (09:51)
[2020-06-12] MEDS: INSULIN GLARGINE 100 UNIT/ML SUBCUT SCH (09:52)
[2020-06-12] MEDS ORDERED: diphenhydrAMINE CAP 25 MG CAPSULE PO ONE (12:11)
[2020-06-12] MEDS: ENOXAPARIN 40 MG/0.4 ML SYRINGE SUBCUT SCH (16:58)
[2020-06-13 04:20] LABS: Basophils # 0.1 10*3/uL (0.0-0.2); Basophils % 0.6 % (0.0-0.8); Eosinophils # 0.2 10*3/uL (0.0-0.87); Eosinophils % 1.9 % (0.00-10.9); Hematocrit 31.1 VOL% (35.7-47.0); Hemoglobin 9.8 GM/DL (12.0-16.0); Immature Granulocytes % 0.5 %; Immature Granulocytes Absolute 0.05 #; Lymphocytes # 3.6 10*3/uL (1.4-4.0); Lymphocytes % 37.5 % (21.3-54.2); Mean Corpuscular HGB Conc 31.5 GM/DL (32-36); Mean Corpuscular Volume 94.2 FL (87-102); Mean Platelet Volume 9.4 FL (9.6-12.0); Monocytes % 7.5 % (1.7-12.7); NRBC # 0.02 10*3/uL; Platelet Count 498 T/CUMM (130-400); Red Cell Distribution Width 13.6 % (9.3-17.3); White Blood Count 9.6 T/CUMM (4-12)
[2020-06-13 04:52] LABS: Alanine Aminotransferase 25 U/L (13-56); Albumin 2.9 G/DL (3.4-5.0); Alkaline Phosphatase 68 U/L (45-117); Aspartate Amino Transferase 14 U/L (0-37); Bilirubin,Total < 0.39 MG/DL (0.2-1.0); Blood Urea Nitrogen 11 MG/DL (7-18); Calcium 9.1 MG/DL (8.5-10.1); Estimated Glom Filtration Rate 138 ML/MIN; Glucose 263 MG/DL (74-106); Osmolality,Calculated 284.5 MOS/KG (273-304); Total Protein 6.9 G/DL (6.4-8.3)
[2020-06-13] MEDS: FUROSEMIDE 20 MG/2 ML VIAL IV SCH (08:41)
[2020-06-13] MEDS: INSULIN GLARGINE 100 UNIT/ML SUBCUT SCH (08:41)
[2020-06-13] MEDS: PANTOPRAZOLE 40 MG TABLET PO SCH (08:41)
[2020-06-13] MEDS: INSULIN LISPRO 100 UNIT/ML SUBCUT SCH ×2 (08:41→12:28)
[2020-06-13] MEDS: SODIUM HYPOCHLORITE 0.25% IRRIG 473 ML BOTTLE TOP SCH (08:41)
[2020-06-13] MEDS: glipiZIDE 5 MG TABLET PO SCH (08:41)
[2020-06-13] MEDS: lisinopriL 5 MG TABLET PO SCH (08:41)
[2020-06-13] MEDS: AMOXICILLIN/CLAV 875 MG TABLET PO SCH (08:41)
[2020-06-13] MEDS: AZITHROMYCIN 250 MG TABLET PO SCH (08:41)
[2020-06-13] MEDS: ATORVASTATIN 40 MG TABLET PO SCH (08:41)
[2020-06-13] MEDS ORDERED: FLUCONAZOLE 200 MG TABLET PO ONE (09:50)
[2020-06-13 12:03] VITALS: BP 149/77
== END 2020-06-13 14:10 | disposition home or self-care (01) ==
LOC: N.EDINP 13:35 → N.ED 13:35 → SUATTDRO 17:11 → N.5E 18:42
PROVIDERS: ADMIT Internal Medicine; ATTEND Phlebology